=== PATIENT | female | born 1995 | race Caucasian/White ===

== ENCOUNTER 2019-01-17 01:37 | Emergency (ER) | payer SELFPAY ==
[~2019-01-17] VITALS: Ht 165.1 cm; Wt 67.1 kg
[2019-01-17] MEDS ORDERED: ONDANSETRON 4 MG TAB.RAPDIS ONE (01:57)
[2019-01-17] MEDS ORDERED: ONDANSETRON 4 MG TAB.RAPDIS SL ONE (02:00)
[2019-01-17 03:00] VITALS: BP 115/68
--- NOTE | 2019-01-17 04:47 | NUR ---
assumed care at discharge. Patient discharged to home in stable condition. Written and verbal after care instructions given. Patient verbalizes understanding of instruction.pt ambulated with no s/s of distress noted upon discharge
== END 2019-01-17 04:50 | disposition home or self-care (01) ==
LOC: ER 01:38 → EDBD 01:38 → ER 04:50
DX: S80.11XA Contusion of right lower leg, initial encounter (principal); Z90.89 Acquired absence of other organs; Z88.5 Allergy status to narcotic agent; W01.0XXA Fall on same level from slipping, tripping and stumbling without subsequent striking against object, initial encounter; Y93.01 Activity, walking, marching and hiking; Y92.89 Other specified places as the place of occurrence of the external cause; Y99.8 Other external cause status
CPT/HCPCS: 70450; 72125; 99284; A4606; Q0162